=== PATIENT | male | born 1995 | race Two or more races ===

== ENCOUNTER 2025-02-05 17:50 | Emergency (ER) | payer BC, SELFPAY ==
[2025-02-05 18:11] VITALS: BP 123/75; PULSE 66; RESP 20; TEMP 36.1; O2SAT 98; BMI 22.4
--- NOTE | 2025-02-05 18:12 | ED_ITS ---
HPI - General Adult General Time Seen by Provider: 18:12 Date Seen: 02/05/25 Chief complaint: Skin/Abscess/Foreign Body Stated complaint: concrete pump hit eye Time Seen by Provider: 02/05/25 18:11 Source: patient Mode of arrival: ambulatory Limitations: no limitations History of Present Illness HPI narrative: Bull is a 29 year old male with no past medical history who presents to the ED via private car and self with a eye and facial injury. 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 Patient was wearing safety glasses. He did sustain an abrasion or burn on the left cheek area and surrounding the eye. He went home took a shower, he then applied vinegar to the area. Patient denies much pain, patient feels he is up-to-date on his tetanus status. Denies any real eye pain, or visual changes, denies any swelling around the left eye. No other concerns at this time. Related Data Home Medications ?Medication ?Instructions ?Recorded ?Confirmed No Known Home Medications 02/05/2501/23 Allergies Allergy/AdvReac Type Severity Reaction Status Date / Time No Known Drug Allergies Allergy Verified 02/05/25 18:10 Review of Systems Status of ROS: Reports: 10 or more systems reviewed and unremarkable except as noted in History and below Exam Narrative: Exam Narrative: General: No obvious distress sitting comfortably HEENT: Pupils equal round reactive to light, extraocular muscles intact, Under Wood's lamp and fluorescein dyed no appreciable corneal abrasion or burn. Small linear abrasions superior lateral inferior orbital area no signs of infection or swelling Left cheek 0.5% BSA chemical burn/abrasion, minimal tenderness Lungs: Pulmonary effort normal Heart: Normal sinus rhythm Const: Vital Signs, click to edit/add: Vital Signs - 24 hr 02/05/25 18:11 Temperature 97.0 F L Pulse Rate [Pulse Oximeter] 66 Respiratory Rate 20 Blood Pressure [Ri ght Upper Arm] 123/75 Pulse Oximetry 98 Oxygen Delivery Me thod Room Air Course Reevaluation(s) Time of Reevaluation #1: 18:35 Reevaluation #1: 6:15 PM: aidet performed. Vitals are normal at this time, Wood's lamp and fluorescein dye did not show any evidence any corneal abrasion, after speaking with poison Control recommendations were for bacitracin application to the area twice daily, pH was tested in the left eye and neutral at 7, patient is up-to-date on his tetanus, continue to monitor the area, follow up as needed with primary care provider. Return precautions given. Vital Signs Vital signs: Initial Vital Signs Temperature 97.0 F L 02/05/25 18:11 Temperature Source Temporal Artery Scan 02/05/25 18:11 Pulse Rate 66 02/05/25 18:11 Respiratory Rate 20 02/05/25 18:11 Blood Pressure 123/75 02/05/25 18:11 Blood Pressure Mean 91 02/05/25 18:11 Pulse Oximetry 98 02/05/25 18:11 Oxygen Delivery Method Room Air 02/05/25 18:11 Vital Signs Temperature 97.0 F L 02/05/25 18:11 Pulse Rate 66 02/05/25 18:11 Respiratory Rate 20 02/05/25 18:11 Blood Pressure 123/75 02/05/25 18:11 Pulse Oximetry 98 02/05/25 18:11 Oxygen Delivery Method Room Air 02/05/25 18:11 Temperature 97.0 F L 02/05/25 18:11 Pulse Rate 66 02/05/25 18:11 Respiratory Rate 20 02/05/25 18:11 Blood Pressure 123/75 02/05/25 18:11 Pulse Oximetry 98 02/05/25 18:11 Oxygen Delivery Method Room Air 02/05/25 18:11 Discharge Plan Discharge Clinical Impression: Chemical burn Patient Disposition: Home, Self-Care Condition: Improved Instructions: Chemical Skin Burn (ED) Additional Instructions: Clean with soap and water, apply bacitracin to the area twice daily until healed, continue to monitor for any developing increased redness or signs of infection, follow-up as needed with primary care provider. Activity Level: No Restrictions Prescriptions: No Action No Known Home Medications Stand Alone Forms: [employer] Info Instructions
[2025-02-05] MEDS: TETANUS/DIPHTH/PERTUSSIS 0.5 ML SYRINGE IM (18:46)
--- OUTSIDE RECORDS SUMMARY | 2025-02-05 18:49 | XMS_ITS | Clinical Summary ---
Author Organization [facility] Address [address] [place] [address] Care Team Providers Care Purchasing Buyer Name Role Phone Best Banda P.A.-C. Primary Care Provider Source Comments Patient records contain information from all sites at [facility]. For routine questions regarding patient records, call [phone] during business hours, M-F 8:00 AM - 5:00 PM Central Time. Record requests for emergency care only can be directed to [phone] at any time.[facility] Allergies No known active allergies Medications * This document contains information received from the source organization and may not represent a complete record from that organization. buPROPion XL (Wellbutrin XL) 150 mg 24 hr tablet Take 1 tablet (150 mg total) by mouth daily. 90 tablet 3 12/28/2023 Active amphetamine-dex troamphetamine (AdderalL XR) 10 mg 24 hr capsule Take 1 capsule (10 mg total) by mouth daily. 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 Immunizations Immunization Administration Dates Next Due DTP 04/01/1997, 6,1995,1995 DTaP (Infanrix, Tripedia) 09/04/2007,09/18/2000 HepA Pediatric/Adolescent 06/02/2010 HepA, Pediatric Unspecified 06/02/2010 HepB Pediatric/Adolescent 04/15/1996,1995, 1995 HepB, Unspecified 04/15/1996,1995 Hib (PRP-T) (ACTHIB, HIBERIX) 04/01/1997 ,04/15/1996,1995,1995 IPV 09/18/2000, 6,1995,1995 MCV4 (Menactra)(Discontinued) 09/04/2007 MCV4, Unspecified 09/04/2007 MMR 09/18/2000,04/01/1997 SARS-COV-2 (COVID-19) - NOVA VAX Fall Seasonal 09/07/2023(Deferred: Patient decision) SARS-COV-2 (COVID-19) - PFIZ ER (Discontinued)(12 years or older) 12/04/2020,11/11/2020 Tdap 01/21/2014,09/04/2007 influenza vaccine quad (FLUZONE/FLUARIX) (6 months and older)(PF) 09/07/2023(Deferred: Patient decision) Family History Medical History Relation Name Comments Hay fever Father Acne Grandfather Ovarian cancer Mother Relation Name Status Comments Father Grandfather Mother Social History Tobacco Use Types Packs/Day Years Used Date Smoking Tobacco: Never Smokeless Tobacco: Never Tobacco Cessation:Counseling Given: Not Answered [facility] [employer] Answer Date Recorded In the past 12 months has e [employer], oil, or water [employer] threatened to shut off services in your home? No 12/28/2023 Humiliation, Afraid, Rape, and Kick questionnair e Answer Date Recorded Within the last year, have y ou been afraid of your partner or ex-partner? No 04/03/2022 Within the last year, have y ou been humiliated or emotionally abused in other ways by your partner or ex-partner? No Within the last year, have y ou been kicked, hit, slapped, or otherwise physically hurt by your partner or ex-partner? No 04/03/2022 Within the last year, have y ou been raped or forced to have any kind of sexual activity by your partner or ex-partner? No 04/03/2022 Hunger Vital Sign Answer Date Recorded Within the past 12 months, y ou worried that your food would run out before you got the money to buy more. Never true 12/28/19 24 Within the past 12 months, t he food you bought just didn't last and you didn't have money to get more. Never true 12/28/2023 PRAPARE - Transportation Answer Date Re corded In the past 12 months, has l ack of transportation kept you from medical appointments or from getting medications? No 10/2023 In the past 12 months, has l ack of transportation kept you from meetings, work, or from getting things needed for daily living? No 12/28/2023 Depression Answer Date Recor ded PHQ-9 Total Score (max 27) 0 12/27 Housing Stability Answer Date Recorded What is your living situation today? [facility] 12/28/2023 Education Answer Date Recorded What is the highest level of school you have completed or the highest degree you have received? 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 Gender Identity Male 05/27/2020 10:09 AM SNACK STEWARD Sexual Orientation Straight 02/03/2021 10 :13 AM CDT Last Filed Vital Signs Vital Sign Reading Time Taken Comments Blood Pressure 113/66 09/07/2023 11:14 AM CDT average of 3 Pulse 78 09/07/2023 11:14 AM CDT Temperature 36.3 C (97.3 F) 09/07/2023 11:14 AM CDT Respiratory Rate 16 09/07/2023 11:1 4 AM CDT Oxygen Saturation 96% 02/03/2021 2:4 4 PM CDT Inhaled Oxygen Concentration - - Weight 74.5 kg (164 lb 2.1 oz) 09/07/2023 11:14 AM CDT Height 180 cm (5' 10.87) 09/07/2023 11 :14 AM CDT with shoes on Body Mass Index 22.98 09/07/2023 11:14 AM CDT Plan of Treatment Health Maintenance Due Date Last Done Comments HIV Screening 1995 Hepatitis C Screening 1995 HPV Vaccines (1 - 3-dose SCDM series) 2022 DTaP,Tdap,and Td Vaccines (9 - Td or Tdap) 01/22/2024 01/21/2014, 09/04/2007, 09/04/2007, Additional history exists COVID-19 Vaccine ( - season) 2024 09/01/2021, 12/04/2020, 11/11/2020 Depression Monitoring (PHQ-9) 04/29/2024 12/28/2023 Depression Monitoring (PHQ-9 for quality tracking) 06/25/2024 Influenza Vaccine (#1) 2025 Hepatitis B Vaccines Completed 04/15/1996, 04/15/1996, 1995, Additional history exists IPV Vaccines Completed 09/18/2000, 03/26, 1995, Additional history exists Pneumococcal vaccine (0-49 years) Aged Out No longer eligible based on patient's age to complete this topic Medical Devices Implanted Type Area Director Of Corporate Sponsorships Device Identifier Shelf Expiration Date Model / Serial / Lot Tendon Plantaris Right - Aguirre [id number] Implanted:Qty: 1 on 09/12/2011 Bone or Tissue Other/Legacy - See Implant Description Other/Legacy - See Implant Description Description:Device Manufactu rer - [facility] ([employer]). Body Location - ?. tendon/ligament/muscle reconstruction. Device Status Text - [id number]. Putty Dbx 1cc - Aguirre [id number] Implanted:Qty: 1 on 09/12/2011 Bone or Tissue Other/Legacy - See Implant Description [employer] Description:Device Manufactu rer - [employer]. Body Location - ?. bone for packing defect. Device Status Text - [facility][id number]. Lc Dc-Plate Sm 3.5x 6ho - Aguirre [id number] Implanted:Qty: 1 on 09/12/2011 Hardware e.g. pins/screw s/rods Depuy Synthes Description:Device Manufactu rer - Synthes. Device Status Text - [id number]. Small Frag-Screw Eloy 3.5x16 - Aguirre [id number] Implanted:Qty: 6 on 09/12/2011 Hardware e.g. pins/screw s/rods Depuy Synthes Description:Device Manufactu rer - Synthes. Device Status Text - [id number]. Guide Wire-Synthes 1.25 X 150 - Aguirre [id number] Implanted:Qty: 2 on 09/12/2011 Hardware e.g. pins/screw s/rods Depuy Synthes Description:Device Manufactu rer - Synthes. Device Status Text - [id number]. Small Frag-Screw Eloy 3.5x18 - Aguirre [id number] Implanted:Qty: 2 on 09/12/2011 Hardware e.g. pins/screw s/rods Depuy Synthes Description:Device Manufactu rer - Synthes. Device Status Text - [id number]. K-Wire-Ss 4 Smooth .062 - Aguirre [id number] Implanted:Qty: 1 on 09/12/2011 Hardware e.g. pins/screw s/rods Lois Description:Device Manufactu rer - Lois Nunu.. Device Status Text - HARDWARE-871. Insurance [facility] [place] [address] Care Teams Purchasing Buyer Relationship Specialty Start Date End Date Best Banda P.A.-C. [address] [place] [phone] PCP - General 12/07/16
--- OUTSIDE RECORDS SUMMARY | 2025-02-05 18:49 | XMS_ITS | Clinical Summary ---
Author Organization [facility] Address [address] [place] [id number] Care Team Providers Care Wound/Ostomy Clinical Nurse Specialist Name Role Phone Best Banda Primary Care Provider [phone] Allergies Active Allergy Reactions Criticality Noted Date Comments Chlorpropamide Rash 01/21/2014 Medications buPROPion (WELLBUTRIN XL) 150 mg Extended-Release tablet Take 150 mg by mouth every morning. 03/21/2023 Active Immunizations Immunization Administration Dates Next Due COVID-19 vaccine (CVRx-Bio NTech 30mcg/0.3mL) 12YO+ ENZO-SUCROSE PF, MDV 09/01/2021 COVID-19 vaccine (CVRx-Bio NTech 30mcg/0.3mL) PF, MDV 12/04/2020,11/11/2020 DTP 04/01/1997, 6,1995,09/24 DTaP 09/18/2000 HIB PRP-T (ActHIB,Hiberix) 04/01/1997,,1995,10/21 Hepatitis A (Peds),Unspecified 06/02/2010 Hepatitis B (Peds) 1995 Hepatitis B, Unspecified 04/15/1996,1995 Inactivated Polio Vaccine 09/18/2000,,1995,09/24 MMR 09/18/2000,04/01/1997 Meningococcal Vaccine (Menactra) 09/04/2007 Tdap 01/21/2014,09/04/2007 Social History Tobacco Use Types Packs/Day Years Used Date Smoking Tobacco: Never Smokeless Tobacco: Never Alcohol Use Standard Drinks/Week Comments Yes 0 (1 standard drink = 0.6 oz pur e alcohol) social Sex and Gender Information Value Date Recorded Sex Assigned at Not on file 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 Gender Identity Not on file Sexual Orientation Not on file Obstetrics History Last Filed Vital Signs Vital Sign Reading Time Taken Comments Blood Pressure 110/70 09/03/2023 1:34 PM CDT Pulse 72 09/03/2023 1:34 PM CDT Temperature 36.6 C (97.8 F) 07/13/2017 10:40 AM WIRE BORDER ASSEMBLER Respiratory Rate 14 07/13/2017 10:4 0 AM WIRE BORDER ASSEMBLER Oxygen Saturation 99% 09/03/2023 1:34 PM CDT Inhaled Oxygen Concentration - - Weight 74.8 kg (164 lb 12.8 oz) 09/03/2023 1:34 PM CDT Height 177.8 cm (5' 10) 09/03/2023 1:34 PM CDT Body Mass Index 23.65 09/03/2023 1:34 PM CDT Plan of Treatment Health Maintenance Due Date Last Done Comments Depression screening for age 12+ 2007 HIV for age 15-65 2010 Hepatitis C screening for ag e 18-79 2013 Tetanus booster 01/22/2024 01/21/2014, 09/04/2007 COVID-19 vaccine series ( season) 2024 09/01/2021, 12/04/2020, 11/11/2020 BMI (ht and wt on same day) for age 18+ 09/02/2024 09/03/2023 Influenza Vaccine (#1) 2025 Hepatitis B series for 19+ Completed 04/15, 1995, 1995 Pneumococcal series for age 6-49 Aged Out No longer eligible b ased on patient's age to complete this topic Insurance [address] [place] [address] [facility] [address] [place] [address] Care Teams Wound/Ostomy Clinical Nurse Specialist Relationship Specialty Start Date End Date Best Banda PA [address] [place] [address] [place] [phone] PCP - General Physician Electric Furnace Operator 09/03/23
== END 2025-02-05 18:56 | disposition home or self-care (01) ==
LOC: ED 18:48
PROVIDERS: Emergency Provider Student in an Organized Health Care Education/Training Program; PCP Physician Assistant
DX: T65.891A Toxic effect of other specified substances, accidental (unintentional), initial encounter (principal); T20.46XA Corrosion of unspecified degree of forehead and cheek, initial encounter; Z23 Encounter for immunization
CPT/HCPCS: 90471; 90715; 99282; 99283; 99284; A9270